=== PATIENT | female | born 1960 | race African-American/Black ===

== ENCOUNTER 2021-07-04 13:22 | Emergency (ER) | payer OTHER ==
[~2021-07-04] VITALS: Ht 162.6 cm; Wt 75.0 kg
[2021-07-04 14:42] LABS: CHLORIDE 91 mEq/L (98-107)
[2021-07-04 14:44] LABS: PROTHROMBIN TIME 10.6 sec (9.6-11.0)
[2021-07-04 14:55] LABS: BASOPHILS % 0.9 % (0.0-2.0); EOSINOPHILS % 0.9 % (0.0-5.0); HEMATOCRIT. 41.1 % (36.0-48.0); HEMOGLOBIN. 14.5 g/dL (12.0-16.0); LYMPHOCYTES % 18.1 % (20.0-50.0); MEAN CORPUSCULAR HEMOGLOBIN 32.8 pg (28.0-32.0); MONOCYTES % 6.6 % (2.0-8.0); NEUTROPHILS % 73.5 % (40.0-76.0); PLATELET 386 x1000/uL (130-400); RED BLOOD CELL COUNT 4.42 mill/uL (4.2-5.4); RED CELL DISTRIBUTION WIDTH 12.8 % (11.6-14.6)
[2021-07-04] MEDS ORDERED: LORAZEPAM 2MG/ML CPJ IV ONE (15:00)
[2021-07-04 17:50] VITALS: BP 154/81
[2021-07-04] MEDS ORDERED: ONDA4TAB5 MT (18:04)
[2021-07-04 18:20] LABS: CLARITY URINE CLEAR (CLEAR); COLOR URINE YELLOW (YELLOW); KETONES URINE 2+ (NEGATIVE); LEUKOCYTE ESTERASE URINE NEGATIVE (NEGATIVE); NITRITE URINE NEGATIVE (NEGATIVE); OCCULT BLOOD URINE NEGATIVE (NEGATIVE); PROTEIN URINE NEGATIVE (NEGATIVE); SPECIFIC GRAVITY URINE 1.011 (1.005-1.030); UROBILINOGEN URINE 0.2 E.U./dL (0.2-1.0)
== END 2021-07-04 18:08 | disposition home or self-care (01) ==
LOC: ER 13:22
DX: R42 Dizziness and giddiness (principal); I10 Essential (primary) hypertension; M06.9 Rheumatoid arthritis, unspecified
CPT/HCPCS: 36415; 71045; 80053; 81003; 83690; 83880; 84443; 84484; 85025; 85379; 85610; 93005; 96374; 99285; J2060